=== PATIENT | female | born 1995 | race Caucasian/White ===

== ENCOUNTER 2017-06-27 05:08 | Emergency (ER) | payer OTHER ==
[~2017-06-27] VITALS: Ht 160 cm; Wt 55.0 kg
[2017-06-27 05:17] VITALS: BP 112/80; PULSE 108; RESP 20; TEMP 98; O2SAT 98
[2017-06-27] MEDS ORDERED: ACETAMINOPHEN/HYDROcodone 325 MG/5 MG TAB PO ONE (05:45)
--- NOTE | 2017-06-27 05:54 | PD ---
HPI Chief Complaint: Injury Time Seen by Provider: 05:31 Travel History International Travel<30 days: No Contact w/Intl Traveler<30days: No Traveled to known affect area: No History of Present Illness HPI 21-year-old right-hand dominant white female presents emergency department for evaluation of left hand pain. She states that she had her hand closed in the door of the bathroom at the [facility]. Patient states that she has pain in her ring and middle finger. She denies any numbness or tingling. She states the pain is moderate to severe. She has difficulty flexing her fingers due to pain. But is able to extend. PFSH Past Medical History Anxiety: Yes Diminished Hearing: No Tetanus Vaccination: < 5 Years Influenza Vaccination: Yes ?: Not LMP: pt states "I don't get my period I am on control" Past Surgical History Oral Surgery: Yes (wisdom teeth) Social History Alcohol Use: Yes (occasionally) Tobacco Use: No Substance Use: No Allergies-Medications (Allergen,Severity, Reaction): Coded Allergies: egg yolk (Verified Allergy, Unknown, 06/27/17) bloated gluten (Verified Allergy, Unknown, 06/27/17) bloating and vomting lactose (Verified Allergy, Unknown, 06/27/17) bloating Review of Systems Except as stated in HPI: all other systems reviewed are Neg Musculoskeletal: Positive: Arthralgias, Limited ROM, Edema, Pain Physical Exam Narrative GENERAL: This is a well-nourished, well-developed patient, in no apparent distress. SKIN: No rashes, ecchymoses or lesions. Warm and dry. HEAD: Atraumatic. Normocephalic. EYES: PERRL, EOMI, no discharge or injection. No scleral icterus. EARS: Clear NOSE: Nasal turbinates appear normal. THROAT: Mucosa pink and moist. Airway patent. NECK: Trachea midline. supple, moves head freely. LUNGS: Clear to auscultation. CV: Regular in rhythm. ABDOMEN: Soft nontender. EXT: No clubbing cyanosis or edema. Examination of the left hand reveals pain and swelling to the distal phalanxes of the left ring and middle finger. There is cracks in her gel nails. There is some mild ecchymosis to the volar pads. She has full extension but limited flexion at the DIP joints. She has full range of motion at the MCP and PIPs. Remainder hand is unremarkable. The skin is intact. Data Data Last Documented VS Vital Signs Date Time Temp Pulse Resp B/P (MAP) Pulse Ox O2 Delivery O2 Flow Rate FiO2 06/27/17 05:17 98.0 108 20 112/80 (91) 98 Orders Orders Hand, Complete ([id number]) (06/27/17 05:34) Ice/Cold Pack (06/27/17 05:34) Acetamin-Hydrocod 325-5 Mg (Oran 5-325 (06/27/17 05:45) MDM Medical Decision Making Medical Screen Exam Complete: Yes Emergency Medical Condition: Yes Medical Record Reviewed: Yes Interpretation(s) Left hand: Negative for acute fracture. Differential Diagnosis MDM: High Differential diagnoses: Fracture, sprain, strain, dislocation, contusion, neurovascular injury Narrative Course X-ray of the left hand. Ice pack. Hydrocodone 5 mg p.o. X-ray is negative. This is left hand contusion Diagnosis Primary Impression: Left hand contusion Patient Instructions: General Instructions Additional Instructions: Rest. Elevation. Ice. 3 Advil every 6 hours. Hydrocodone. Follow-up with a medical doctor in 1 week. Med/Other Pt SpecificInfo: Prescription(s) given Scripts Hydrocodone-Acetaminophen (Oran) 5 Mg-325 Mg Tab 1 TAB PO Q6H Y for PAIN, #10 TAB 0 Refills Prov: Alexis Saavedra MD 06/27/17 Disposition: 01 DISCHARGE HOME Condition: Stable Josh Cleveland Jun 27, 2017 05:54
--- NOTE | 2017-06-27 06:17 | RADRPT ---
EXAM DATE/TIME: 06/27/2017 05:54 [facility] COMPARISON: No previous studies available for comparison. INDICATIONS : Left hand pain. Patient states she shut her third and fourth digits in a door. MEDICAL HISTORY : None. SURGICAL HISTORY : None. ENCOUNTER: Initial ACUITY: 1 day PAIN SCORE: 8/10 LOCATION: Left hand, third and fourth digit. FINDINGS: Three views of the left hand demonstrate no fracture or dislocation. Mineralization is within normal limits and there is no significant arthropathy. No soft tissue abnormality or radiopaque foreign body is identified. CONCLUSION: No acute abnormality is identified. Carlton Colin MD on June 27, 2017 at 6:15 Board Certified Radiologist. This report was verified electronically.
[2017-06-27] MEDS ORDERED: NORC5TAB PO (06:20)
== END 2017-06-27 08:08 | disposition home or self-care (01) ==
LOC: NEPD 05:08
DX: S60.222A Contusion of left hand, initial encounter (principal); W23.0XXA Caught, crushed, jammed, or pinched between moving objects, initial encounter; Y92.091 Bathroom in other non-institutional residence as the place of occurrence of the external cause
CPT/HCPCS: 73130; 99283